=== PATIENT | male | born 1990 | race Caucasian/White ===

== ENCOUNTER → 2021-02-19 10:08 | Outpatient (CLI) | payer OTHER, SELFPAY ==
[2021-02-19 10:46] LABS: Basophils # 0.1 K/mm3 (0-0.2); Basophils % 0.8 % (0.1-2.0); Eosinophils # 0.1 K/mm3 (0.0-0.4); Eosinophils % 1.8 % (0.1-12.0); Hematocrit 42.3 % (42.0-52.0); Hemoglobin 14.6 g/dL (14.1-18.0); Lymphocytes # 2.8 K/mm3 (0.7-4.5); Lymphocytes % 40.7 % (10-50); Mean Corpuscular HGB Conc 34.4 g/dL (31.8-35.4); Mean Corpuscular Hemoglobin 30.7 pg (27.0-31.2); Mean Corpuscular Volume 89.3 fl (80-94); Mean Platelet Volume 8.3 fl (7.4-10.4); Monocytes # 0.3 K/mm3 (0.1-1.0); Monocytes % 4.6 % (1.7-9.3); Neutrophils # 3.6 K/mm3 (1.8-7.8); Neutrophils % 52.1 % (37.0-80.0); Platelet Count 251 K/mm3 (142-424); Red Blood Count 4.74 M/mm3 (4.60-6.20); Red Cell Distribution Width 13.2 % (11.5-17.5); White Blood Count 6.9 K/mm3 (4.8-10.8)
[2021-02-19 11:36] LABS: Chloride 105 mmol/L (98-107); Potassium 4.6 mmoL/L (3.5-5.1); Sodium 140 mmol/L (136-145)
[2021-02-19 11:39] LABS: Anion Gap 15.6 mEq/L (5-15); Blood Urea Nitrogen 17 mg/dl (9-20); Calcium 9.4 mg/dl (8.4-10.2); Carbon Dioxide 24 mmol/L (22.0-30.0); Estimated Glomerular Filt Rate 113 ml/min (>60); GFR (African American) 136 ML/MIN (>60); Glucose 92 mg/dl (74-100)
== END ==
PROVIDERS: Visit Provider Surgery
DX: K40.90 Unilateral inguinal hernia, without obstruction or gangrene, not specified as recurrent (principal)
CPT/HCPCS: 36415; 80048; 85025

== ENCOUNTER → 2021-03-08 11:56 | Outpatient (CLI) | payer OTHER, SELFPAY | PROVIDERS: Visit Provider Surgery | DX: Z01.812 Encounter for preprocedural laboratory examination (principal); Z20.822 Contact with and (suspected) exposure to COVID-19; K40.90 Unilateral inguinal hernia, without obstruction or gangrene, not specified as recurrent | CPT/HCPCS: C9803; U0003; U0005 ==

== ENCOUNTER 2021-03-09 06:04 | Day surgery (SDC) | payer OTHER, SELFPAY ==
[2021-03-01 10:05] VITALS: BMI 31.6
[2021-03-09] VITALS (10 sets, daily range): BP systolic 109–148; BP diastolic 63–92; PULSE 73–105; RESP 16–18; TEMP 36.3–38; O2SAT 92–99
--- NOTE | 2021-03-09 06:55 | HMH.ANESCL ---
[facility] Anesthesia Checklist - Patient Identification Patient Identification: Arm Band - Structural Data Admitted From: Home Planned Operative Procedure/s: Lap. inguinal henia Consent for Planned Operative Procedure(s) Verified: Yes - NPO Status Verified Time NPO: 00:00 - Additional verifications Anesthesia Reactions: No Hx Blood Transfusions: No Blood Transfusion Reaction: No - Airway Assessment C-Spine Mobility Assessed: Yes TMJ Mobility Assessed: Yes Dentition: Good Dentition - Neurological Assessment Level of Consciousness: Awake Hx Seizures: No Numbness or tingling in extremities: No - Anesthesia Plan Anesthesia Risk discussed: Yes Anesthesia Plan: Verified ASA Class: II Anesthesia Type: General [facility] History I have reviewed the patient's past medical history: Yes Medical History: Denies:: Cancer, Diabetes Mellitus Type 1, Diabetes Mellitus Type 2, Internal Pacemaker, MRSA, Seizures *Have you ever received a pneumonia vaccine?: No *Have you received a flu vaccine this season?: No Other Medical History: Denies: Blood Transfusion Reaction Anesthesia experience/problems:: None Laterality Cases: Left: Arthroscopy Knee Other Surgeries: No: Pacemaker Amputation: No Fractures: No - *Social History Last grade of school completed: High school graduate Smoking Status: Never smoker Alcohol Intake: never Alcohol Intake Frequency:: holidays/special occasions only Substance Use Type: denies use *Occupational Status:: employed Housing: house Household Members: spouse *Travel in the last 8 weeks: Inside the [place] Family Hx:: No significant family history
--- NOTE | 2021-03-09 10:53 | HMH.ANESI ---
[facility] Anesthesia Record Part I Intake, IV Amount: 1,900 Estimated blood loss (mL): 10 Urine output (mL): 400 Blood Pressure: 145/90 SaO2: 92 Pulse Rate: 105 Respiratory Rate: 16 Temperature: 97.8 F Patient is:: Drowsy, Stable Stable to PACU at:: 10:50
--- NOTE | 2021-03-09 11:07 | PC.NURSE ---
1104-pt drinking ice water at this time w/out difficulty, denies nausea, vss
--- NOTE | 2021-03-09 11:23 | PC.NURSE ---
1119-detailed report called to CHERYLE Romero 1120-pt transported to post op via stretcher w/marika rails up and left in care of CHERYLE Romero with bed locked in lowest position, vss, pt stable
--- NOTE | 2021-03-09 11:53 | HMH.OPNOTE ---
Date of procedure: 03/09/21 Pre-op Diagnosis:: Bilateral inguinal hernia Post-op Diagnosis:: Same Procedure performed:: Laparoscopic bilateral inguinal hernia repair with placement of large Bard 3D max mesh on the right and medium Bard 3D max mesh on the left Surgeon:: Hugo Cuevas MD STRAPPER:: Howie Campbell Anesthesia: GETA Estimated blood loss (mL): 40 Clinical Note:: Patient is a very pleasant 30-year-old male from [place]. He is a self-referral for right inguinal hernia. 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 He states that for a couple of months he has had some swelling in the right inguinal area. He states that initially this was a burning type discomfort. He has some discomfort and has some paresthesias. He states that the swelling improves when he lies supinely. He does lift heavy when he is working out. He has had to limit this. He was seen and examined in the office. Was found to have an obvious right inguinal hernia with more subtle smaller left inguinal hernia. Operative findings:: Patient had a large indirect right inguinal hernia with herniated preperitoneal fat and a large thickened hernia sac densely adherent to the cord structures. The left side there was a small moderate indirect hernia with herniated preperitoneal fat. Operative note:: Patient was taken to the operating room. He was positioned in a supine position. General anesthesia was induced via endotracheal tube. Baltazar catheter was placed for bladder decompression. Abdomen and perineum were prepped and draped in the standard surgical fashion. Subumbilical skin incision was made. Dissection was carried down through subcutaneous tissues to the anterior rectus fascia. Anterior rectus fascia was incised to the right of the midline. Rectus muscles were retracted laterally and preperitoneal space was entered. Dissecting balloon trocar was inserted into the preperitoneal space and this was dissected out after inflation of the balloon. Dissecting balloon trocar was then removed and replaced with the structural balloon trocar. Preperitoneal space was inflated to 15 mmHg. A couple 5 mm trochars were inserted in the midline inferior to the umbilicus. Attention was turned to dissection on the right side. The structures were identified. Roberth's ligament and pubic tubercle were easily identified. Dissection was carried out ultimately identifying the inferior epigastric vessels. Preperitoneal space was dissected out bluntly laterally. Dissection was then carried out of the cord structures. There was a significant amount of chronic scar tissue from herniation at this location. There was a large amount of herniated preperitoneal fat which was able to be ultimately after prolonged dissection dissected free from the cord and reduced into the peritoneal space. There was a very thickened densely adherent hernia sac. Very prolonged dissection was carried out of this and this was ultimately able to be dissected free from the cord and reduced. Overall dissection process on the right side proceeded for approximately 2 hours. Next attention was turned to dissection on the left. Once again landmarks were identified easily identifying Roberth's ligament. Dissection was carried out bluntly opening up the preperitoneal space. The inferior epigastric vessels were easily identified. Cord structures were then identified and dissected free. There is small hernia preperitoneal fat through the internal ring which was able to be dissected free from the cord and reduced. Dissection was carried out laterally dissecting out the preperitoneal space so as to allow mesh placement. Medium sized Bard 3D max mesh dedicated for the left side was inserted into the preperitoneal space. It was oriented intracorporeally to cover the iliopectineal orifice covering the hernia defect. Repair appeared adequate. Next attention was turned to mesh placement on the right side. A large sized Ba
[2021-03-09 12:16] LABS: Microscopic,Cath URINE MICROSCOPIC (MICROSCOPIC)
[2021-03-09 13:04] LABS: Appearance,Urine/Cath CLEAR (Clear); Bilirubin,Cath Negative (Negative); Blood, Urine/Cath Negative (Negative); Color,Urine/Cath YELLOW (Yellow); Glucose,Urine/Cath (UA) Negative (Negative); Ketones,Urine/Cath Negative (Negative); Leukocyte Esterase,Cath Negative (Negative); Nitrate,Cath Negative (Negative); Protein,Urine/Cath Negative (Negative); Specific Gravity, Urine/Cath 1.025 (1.005-1.030); Urobilinogen,Cath 0.2 EU/dl (0.2)
[2021-03-09 13:16] LABS: Squamous Epithelial Ur./Cath Occasional #/hpf (0-5)
--- NOTE | 2021-03-10 11:27 | P.PN_ITS ---
[facility] Anesthesia Record Part II Discharge Time: 11:20 Destination: Surgical Day Care (OP Surgery) PACU nurse assessment reviewed?: Yes Patient Condition:: Good Anesthesia Complications:: None Swallowing reflex intact?: Yes Cyanosis?: No Blood Pressure: 133/88 Pulse Rate: 73 Temperature: 97.4 F Mental Status: Alert & Oriented Pain level:: 2 Nausea and/or vomitting:: None Intake, IV Amount: 0
[2021-03-10 11:28] VITALS: BP 133/88; PULSE 73; TEMP 36.3
== END 2021-03-09 11:51 | disposition home or self-care (01) ==
LOC: OR 06:08
PROVIDERS: PCP Surgery; Visit Provider Surgery
PROC: 0YQ64ZZ Repair Left Inguinal Region, Percutaneous Endoscopic Approach (ICD-10-PCS; CPT 49650; principal; 2021-03-09 07:30)
DX: K40.20 Bilateral inguinal hernia, without obstruction or gangrene, not specified as recurrent (principal); Z79.899 Other long term (current) drug therapy
CPT/HCPCS: 49650; 81001; 96374; C1781; J2405; J2710